=== PATIENT | male | born 1970 | race Hispanic/Latino ===

== ENCOUNTER 2022-06-15 08:56 | Outpatient (CLI) | payer BC ==
[2022-06-15 11:16] LABS: Anion Gap 15 mmol/L (10-20); BUN (Urea Nitrogen) 12 mg/dL (8.4-25.7); Calc. Creatinine Clearance 0 mL/min (70-130); Calcium 9.7 mg/dL (7.8-10.44); Carbon Dioxide 25 mmol/L (22-29); Chloride 105 mmol/L (98-107); Estimated GFR 100; Glucose 78 mg/dL (70-105); Potassium 4.2 mmol/L (3.5-5.1); Sodium 141 mmol/L (136-145)
[2022-06-15 11:19] LABS: #Eosinphils 0.2 10x3/uL (0.0-0.5); #Monocytes 0.4 10x3/uL (0.0-1.1); #Neutrophils 2.6 10x3/uL (1.5-8.4); %Basophils 0.8 % (0.0-2.0); %Eosinophils 4.5 % (0.0-6.0); %Monocytes 8.3 % (0.0-10.0); Hemoglobin 12.5 g/dL (13.5-17.5); Mean Corpuscular Hemoglobin 24.2 pg (27.0-33.0); Mean Corpuscular Volume 75.8 fl (81.2-95.1); Platelet Count 248 10x3/uL (150-450); RBC Distribution Width 14.8 % (11.5-14.5); Red Blood Cell (RBC) Count 5.16 10x6/uL (4.32-5.72); White Blood Cell (WBC) Count 5.3 10x3/uL (3.5-10.5)
== END 2022-06-15 08:57 | disposition home or self-care (01) ==
LOC: LABBT 08:56
PROVIDERS: ATTEND Orthopaedic Surgery
DX: Z01.818 Encounter for other preprocedural examination (principal); S83.242A Other tear of medial meniscus, current injury, left knee, initial encounter
CPT/HCPCS: 71046; 80048; 85025; 93005; 93010

== ENCOUNTER 2022-06-17 09:41 | Day surgery (SDC) | payer BC ==
[2022-06-16 13:52] VITALS: BMI 38.9
[2022-06-17] MEDS ORDERED: Bupivacaine PF 0.5% 30 ML VIAL ONE (12:07)
[2022-06-17] MEDS ORDERED: PROPOFOL 20 ML ONE (12:07)
[2022-06-17] MEDS ORDERED: Lidocaine 1% (PF) 30 ML VIAL ONE (12:07)
[2022-06-17] MEDS ORDERED: CEFAZOLIN 2 GM VIAL ONE (13:35)
[2022-06-17] MEDS ORDERED: Sodium Chloride 0.9% 100 ML ONE (13:35)
[2022-06-17] MEDS ORDERED: fentaNYL PF 100 MCG/2 ML SYRINGE ONE (13:40)
[2022-06-17] MEDS ORDERED: Dexamethasone 20 MG/5 ML VIAL ONE (13:46)
[2022-06-17] MEDS ORDERED: Ketorolac Tromethamine 30 MG/ML VIAL ONE (13:46)
[2022-06-17] MEDS ORDERED: PROPOFOL 200 MG/20 ML VIAL ONE (13:46)
[2022-06-17] MEDS ORDERED: Ondansetron PF 4 MG/2 ML Vial ONE ×2 (13:46→14:20)
[2022-06-17] MEDS ORDERED: FENTANYL 50 MCG/ML 1 ML VIAL ONE (14:56)
== END 2022-06-17 16:45 | disposition home or self-care (01) ==
LOC: SDC 09:41
PROVIDERS: ATTEND Orthopaedic Surgery
PROC: 0SBD4ZZ Excision of Left Knee Joint, Percutaneous Endoscopic Approach (ICD-10-PCS; principal; 2022-06-17)
DX: S83.242A Other tear of medial meniscus, current injury, left knee, initial encounter (principal); M23.8X2 Other internal derangements of left knee; I10 Essential (primary) hypertension; E66.9 Obesity, unspecified; Z68.38 Body mass index [BMI] 38.0-38.9, adult; Z86.16 Personal history of COVID-19; Z79.899 Other long term (current) drug therapy; X58.XXXA Exposure to other specified factors, initial encounter
CPT/HCPCS: J1100; J1885; J2001; J2405; J2704; J3010; J3490; S0020